=== PATIENT | male | born 1955 | race Caucasian/White ===

== ENCOUNTER 2020-05-02 10:07 | Outpatient (CLI) | payer OTHER, SELFPAY ==
--- NOTE | 2020-05-02 10:09 | ECG_ITS ---
Measurements Intervals [place] Rate: 79 P: 22 AK: 178 QRS: -25 QRSD: 97 T: 10 QT: 360 QTc: 413 Interpretive Statements SINUS RHYTHM POOR R WAVE PROGRESSION, ANTERIOR LEADS MINIMAL Q WAVES- HIGH LATERAL LEADS BORDERLINE T WAVE ABNORMALITY- INFERIOR LEADS BORDERLINE ECG Electronically Signed On 05-02-2020 10:53:41 GROUNDS PERSON by Zander Sotelo D.O.
== END 2020-05-02 10:08 | disposition home or self-care (01) ==
LOC: ANHSURGERY 10:09
PROVIDERS: PCP Family Medicine; Visit Provider Orthopaedic Surgery
DX: Z01.818 Encounter for other preprocedural examination (principal); K42.9 Umbilical hernia without obstruction or gangrene
CPT/HCPCS: 36415; 86850; 86900; 86901; 93005

== ENCOUNTER 2020-05-07 00:47 | Outpatient (CLI) | payer OTHER, SELFPAY ==
[2020-05-07 19:31] LABS: SARS-CoV-2 RNA PCR Negative
== END 2020-05-07 00:48 | disposition home or self-care (01) ==
LOC: ANHCOVIDDT 00:47
PROVIDERS: PCP Family Medicine; Visit Provider Surgery
DX: Z01.812 Encounter for preprocedural laboratory examination (principal); Z20.828 Contact with and (suspected) exposure to other viral communicable diseases
CPT/HCPCS: 87635; C9803; U0003

== ENCOUNTER 2020-05-09 00:17 | Day surgery (SDC) | payer OTHER, SELFPAY ==
[2020-04-11 14:37] VITALS: BMI 32.3
--- NOTE | 2020-04-29 15:33 | PC.NURSE ---
NEW DATE AND TIME GIVEN. NO CHANGE IN HEALTH HX
[2020-05-09] VITALS (7 sets, daily range): BP systolic 100–131; BP diastolic 59–94; PULSE 64–86; RESP 12–15; TEMP 35.9–36.4; O2SAT 96–100; BMI 34.0
--- NOTE | 2020-05-09 08:10 | WPDANESEPPF ---
Anes - Initial Pre Proc Eval Procedure: Operation Date: 05/09/20 13:30 Proposed Procedures p Laparoscopic Umbilical Hernia Repair with Mesh - Sen Franco MD Date/Time: 05/09/20 08:10 Surgeon: Sen Franco MD Pre Op Diagnosis: umbilical hernia with obstruction Patient Data Age: 64 Gender: M Height: 1.89 m Weight: 115.9 kg Allergies Allergy/AdvReac Type Severity Reaction Status Date / Time No Known Allergies Allergy Verified 04/29/20 15:27 Home Medications Medication Instructions Recorded Confirmed Type cetirizine 10 mg capsule 10 mg PO DAILY 03/16/20 04/29/20 History ECG: Date of Service: 05/02/20 Procedure(s): CA 12 lead EKG Accession Number(s): [id number] cc: ~ Measurements Intervals [place] Rate: 79 P: 22 VT: 178 QRS: -25 QRSD: 97 T: 10 QT: 360 QTc: 413 Interpretive Statements SINUS RHYTHM POOR R WAVE PROGRESSION, ANTERIOR LEADS MINIMAL Q WAVES- HIGH LATERAL LEADS BORDERLINE T WAVE ABNORMALITY- INFERIOR LEADS BORDERLINE ECG Electronically Signed On 05-02-2020 10:53:41 JAVA SDET by Zander Sotelo D.O. Dictated By: Zander Sotelo DO 05/02/20 1049 Patient hx anesthesia problems: none Family hx anesthesia problems: none PMFSH Past Medical History Medical History BMI 33.0-33.9,adult BMI 34.0-34.9,adult Skin cancer Umbilical hernia Surgical History Surgical History History of bunionectomy Ulnar nerve abnormality transpostion Family History Family History Father Hypertension Family history of lung cancer Mother Family history of malignant neoplasm of ovary Other Family history of malignant neoplasm Social History Social History Smoking packs per day: 0.5 Smoking cigarettes per day: 10.0 Years smoked: 15 Smoking pack-years: 7.50 Smoking status: Never smoker Smoking end date: 04/11/00 Additional smoking assessment comments: 25 years since he has smoked Alcohol intake: current Substance use: unknown Living arrangements: with family 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 Questions were solicited and answers provided to the satisfaction of the patient/family/POA.
[2020-05-09] MEDS: LACTATED RINGERS 1,000 ML 30 ML IV CONT (12:26)
[2020-05-09] MEDS: ACETAMINOPHEN 500 MG TABLET 1000 MG PO (12:27)
[2020-05-09] MEDS: KETOROLAC 15 MG/ML VIAL (*BKC) IV PUSH (12:27)
--- NOTE | 2020-05-09 13:05 | PM.HPGS ---
History of Present Illness History of Present Illness Consent: Risks, benefits, and alternatives of laparoscopic repair of an umbilical hernia with mesh have been discussed and questions answered. Patient agrees to proceed with procedure. Chief complaint: umbilical hernia with obstruction Narrative: Margarito Coleman is a 64 year old male who presents with an umbilical hernia at the request of Dr. Mosley. He reports first experiencing symtpoms 3-4 years ago. He states there is a bulge at his umbilicus. The bulge has doubled in size. He states it causes pain when he strains or is more active. He is having regular BM's without difficulty. Review of Systems Constitutional: Constitutional: Reports no additional constitutional complaints, Reports fatigue and Denies malaise Eyes: Eyes: Denies change in vision and Denies loss of vision ENT: Reports Normal hearing present, Denies change in voice, Denies dizziness, Denies hoarseness and Denies sore throat Cardiovascular: Cardiovascular: Denies chest pain, Denies leg edema and Denies dyspnea Respiratory: Respiratory: Denies cough, Denies dyspnea and Denies wheezing Gastrointestinal: Gastrointestinal: Denies hematochezia, Denies change in bowel habits and Denies heartburn Genitourinary: Genitourinary: Denies urinary frequency and Denies urinary incontinence Neurologic: Reports Normal hearing present, Denies confusion, Denies dizziness, Denies loss of vision, Denies memory loss and Denies seizure-like activity Psychiatric: Psychiatric: Denies confusion, Denies depression and Denies memory loss Endocrine: Endocrine: Denies cold intolerance and Reports fatigue Hematologic/Lymphatic: Hematologic/Lymphatic: Denies easy bleeding and Denies easy bruising Allergic/Immunologic: Allergic/Immunologic: Denies wheezing PMFSH Past Medical History Medical History BMI 33.0-33.9,adult BMI 34.0-34.9,adult Skin cancer Umbilical hernia Surgical History Surgical History History of bunionectomy Ulnar nerve abnormality transpostion Family History Family History Father Hypertension Family history of lung cancer Mother Family history of malignant neoplasm of ovary Other Family history of malignant neoplasm Social History Social History Smoking packs per day: 0.5 Smoking cigarettes per day: 10.0 Years smoked: 15 Smoking pack-years: 7.50 Smoking status: Never smoker Smoking end date: 04/11/00 Additional smoking assessment comments: 25 years since he has smoked Alcohol intake: current Substance use: unknown Living arrangements: with family Additional occupation/education comments: [employer] Gender identity (if verbalized by the patient): Male Spiritual care concerns: No Meds Home Medications and Allergies Home Medications Medication Instructions Recorded Confirmed Type cetirizine 10 mg capsule 10 mg PO DAILY 03/16/20 04/29/20 History Allergies Allergy/AdvReac Type Severity Reaction Status Date / Time No Known Allergies Allergy Verified 04/29/20 15:27 Exam Const: General: cooperative, healthy appearing, no acute distress, well developed and alert; No confusion Nutritional Appearance: well nourished Orientation/consciousness: patient oriented x3 and No confusion Limitations: no limitations HENMT: Head: normal to inspection, normocephalic and atraumatic Ears: hearing grossly normal bilaterally General nose exam: Normal external nose present Face and sinus: no edema Mouth: Yes Normal oral and palatal mucosa present and Yes lip normal Throat: posterior oropharynx normal Eyes: General: appearance normal, both eyes and all related structures Sclera: sclerae normal Pupils: Equal, round and reactive pupils present EOM: EOMs i
--- NOTE | 2020-05-09 14:37 | WPDHPUPDATE1 ---
History and Physical Update Update Date/Time: 05/09/20 14:37 History and Physical has been reviewed, including an updated exam of the patient. There are NO changes in the patient's condition. Risks, benefits, and alternatives have been discussed and questions answered. Patient agrees to proceed with procedure.
[2020-05-09] MEDS: ceFAZolin 3 GM/D5W 100 ML 100 ML IVPB (14:58)
[2020-05-09] MEDS: LIDO 1%/EPINEPHRINE 1:100,000 50 ML VIAL INFILTRATE (15:42)
--- NOTE | 2020-05-09 15:54 | PM.PROC ---
Procedure Note - Detailed Date of procedure: 05/09/20 Pre-op diagnosis: umbilical hernia with obstruction The above preoperative diagnosis will not go way and I disagree with it. See below: Umbilical hernia without signs of obstruction or incarceration Post-op diagnosis: same (Umbilical hernia without signs of obstruction or incarceration) Procedure performed: Laparoscopic umbilical hernia repair with mesh Description of procedure: DESCRIPTION OF PROCEDURE: The patient was placed in the supine position on the operative table and after induction of adequate general endotracheal anesthesia by Ahsan Anesthesia, the entire abdomen was prepped and draped in usual sterile fashion and the head placed slightly up. An Ioban drape was used to prevent contact of the mesh with the skin during this clean case. Following this, local anesthetic was placed and a spot selected about two fingerbreadths below the costal margin on the left and a small incision made after instilling local anesthetic using 1 % xylocaine with epinephrine. Following this, a Veress needle technique using the water drop test was completed. Using 2 towel clips on the skin, I carefully elevated the skin and then passed the Veress needle into the abdomen and we could see that the saline dropped through the Veress needle easily. CO2 gas was connected and the abdomen was insufflated to 14 mm Hg pressure after starting out at around 9. Following this, 0 degree 5 mm laparoscope was placed inside a 5 mm trocar, which was carefully twisted into the abdomen without difficulty, seeing a open pneumoperitoneum as we entered. Thus, the trocar was removed, the sleeve confirmed to be nicely within the abdomen, and we carefully inspected the abdomen. Careful inspection of the abdomen revealed no inguinal hernias. A small defect in the umbilicus that was easy to see and abour 2.5 cm in diameter, but after placing a 12 mm port in the left lower quadrant under direct vision with the laparoscope, we could see up into a 25 mm defect that had been measured then with an instrument with a known cm marker. There was no incarceration of any omentum or any other adhesions to the underside of the umbilicus. Next I infiltrated some of the local anesthetic right at the site where I was planning to pass a granny needle through an 11 blade knife slit and also circumferentially in the fascia surrounding the umbilicus where the tacks would go. We had a little bleeding from this, and lost about 5 mL of blood. Following this, we carefully planned by measuring the defect. Our mesh, a circular 11 cm piece of Ventralight piece of mesh was chosen, so that we would have 4.5 cm of overlap in all directions over the circular umbilical defect. Following this, the ventralight balloon hernia system mesh was rolled and this was inserted through the 12 mm port after rolling it to protect the absorbable covering on the downside of the mesh. A black silk suture was placed through the blue system loop that is used to extract the tubing for the balloon positioning system such that I could grab this and pull it up through the umbilical area with the suture Passer. I used the suture passer after making a small opening with an 11 blade knife after placing local anesthetic directly in the center of the umbilicus as noted above. The suture passer was used to grasp this centering silk stitch on the piece of mesh, and this was pulled up centering it. Then I inflated the balloon system which brought the mesh up against the anterior abdominal wall centering it nicely with the center of the 11 centimeter piece of mesh over the center of the umbilicus. Two rows of tacks using the Ethicon absorbable Tacker were completed circumferentially at the edge and then about 2 centimeters back from the edge. This seemed to give good security to the mesh completely covering the umbilical defect. Once this was completed, we carefully removed the tacker, snipped t
== END 2020-05-09 17:16 | disposition home or self-care (01) ==
PROVIDERS: PCP Family Medicine; Visit Provider Surgery
PROC: (CPT 49652; principal; 2020-05-09 13:30)
DX: K42.0 Umbilical hernia with obstruction, without gangrene (principal); E66.9 Obesity, unspecified; Z68.34 Body mass index [BMI] 34.0-34.9, adult; Z87.891 Personal history of nicotine dependence
CPT/HCPCS: 49652; 36415; 86850; 86900; 86901; 93005; A9270; C1781; C9803; J0690; J1100; J1885; J2405; J2704; J3010; J7120; U0003

== ENCOUNTER 2023-04-22 06:57 | Day surgery (SDC) | payer OTHER, SELFPAY ==
[2023-04-10 13:31] VITALS: BMI 32.2
[2023-04-22 08:29] VITALS: BP 124/81; PULSE 87; RESP 16; TEMP 36.6; O2SAT 97
--- NOTE | 2023-04-22 08:32 | PM.HPGS ---
History of Present Illness History of Present Illness Consent: Risks, benefits, and alternatives have been discussed and questions answered. Patient agrees to proceed with procedure. Chief complaint: History of Colon Polyps Narrative: Margarito Coleman is a 67 year old male Presents for screening colonoscopy. Patient reports he was found to have a benign colon polyp 8 years ago. Follow-up colonoscopy 5 years ago was a unremarkable. Patient is today for surveillance colonoscopy. He reports a tendency towards constipation. Only has small amount of bright red blood per rectum attributed to hemorrhoids. Has remained stable. Family history noncontributory. Review of Systems Review of Systems: Review of systems noncontributory. [facility] Past Medical History Medical History (Updated 04/22/23 @ 08:34 by Michael Jean MD) BMI 33.0-33.9,adult BMI 34.0-34.9,adult BMI 35.0-35.9,adult BMI greater than 30 Bunion, right Dermatitis Flat foot [pes planus] (acquired), left foot Gout Hallux valgus (acquired), right foot Polyp of colon Skin cancer Umbilical hernia (Unknown) Surgical History Surgical History History of bunionectomy Ulnar nerve abnormality transpostion Family History Family History Father Hypertension Family history of lung cancer Lung cancer Heart disease Mother Family history of malignant neoplasm of ovary Ovarian cancer Daughter Lung cancer Sibling No problems noted. Other Family history of malignant neoplasm Social History Social History Smoking packs per day: 0.5 Smoking cigarettes per day: 10.0 Years smoked: 15 Smoking pack-years: 7.50 Smoking status: Former smoker Tobacco type: cigarettes Second hand tobacco smoke exposure: No Smoking end date: 04/11/00 Additional smoking assessment comments: 25 years since he has smoked Alcohol intake: never Substance use: never Substance use type: does not use Last use: 25 years ago Lack of Transportation: No Lack of Food: Never True Current Housing: I Have Housing Concerned About Future Housing: No Difficulty Paying Gas/Electric Bills: No Difficulty Paying for Meds: No Currently Unemployed: No Education: Bachelor's Degree Difficulty w/ Childcare or Family Care: No Living arrangements: with family Occupation/Education: occupation Additional occupation/education comments: [employer] Gender identity (if verbalized by the patient): Male Spiritual care concerns: No Meds Home Medications and Allergies Home Medications Medication Instructions Recorded Confirmed Type sodium,potassium,mag sulfates 17.5 See Rx Instructions PO .COMPLEX 04/03/23 Rx gram-3.13 gram-1.6 gram oral soln #354 mL (Suprep Bowel Prep Kit) Allergies Allergy/AdvReac Type Severity Reaction Status Date / Time No Known Allergies Allergy Verified 04/22/23 08:18 Vital Signs Vital Signs - 24 hr 04/22/23 08:29 Temperature 97.8 F Pulse Rate 87 Respiratory Rate 16 Blood Pressure 124/81 Pulse Oximetry 97 Oxygen Delivery Room Air Exam Narrative: Physical exam reveals patient to be alert. Vital signs stable. HEENT exam is unremarkable. Patient is anicteric. Lungs are clear to auscultation and percussion. Heart is without murmur or extra sounds. Abdomen bowel sounds are present soft nontender with no organomegaly. Digital external rectal exam is normal. Assessment and Plan Assessment and plan (1) History of colon polyps: Code(s): Z86.010 - Personal history of colonic polyps Status: Acute Assessment and Plan: Patient has a history of colon polyps. Plan for surveillance colonoscopy now. Consider this at 5-7 years in the future.
[2023-04-22] MEDS: LACTATED RINGERS 1,000 ML 150 ML IV CONT (08:33)
--- NOTE | 2023-04-22 08:36 | WPDANESEPPF ---
Anes - Initial Pre Proc Eval Procedure: Operation Date: 04/22/23 09:30 Proposed Procedures p Colonoscopy - Michael Jean MD Date/Time: 04/22/23 08:36 Surgeon: Michael Jean MD Pre Op Diagnosis: History of Colon Polyps Patient Data Age: 67 Gender: M Height: 1.88 m Weight: 120.6 kg Last Vital Signs Temp 36.6 C 04/22/23 08:29 Pulse 87 04/22/23 08:29 Resp 16 04/22/23 08:29 BP 124/81 04/22/23 08:29 Pulse Ox 97 04/22/23 08:29 O2 Del Method Room Air 04/22/23 08:29 Allergies Allergy/AdvReac Type Severity Reaction Status Date / Time No Known Allergies Allergy Verified 04/22/23 08:18 Home Medications Medication Instructions Recorded Confirmed Type sodium,potassium,mag sulfates 17.5 See Rx Instructions PO .COMPLEX 04/03/23 Rx gram-3.13 gram-1.6 gram oral soln #354 mL (Suprep Bowel Prep Kit) Patient hx anesthesia problems: none Family hx anesthesia problems: none Results Review: All pre-operative results and documents have been reviewed as part of the pre-operative evaluation. [facility] Past Medical History Medical History BMI 33.0-33.9,adult BMI 34.0-34.9,adult BMI 35.0-35.9,adult BMI greater than 30 Bunion, right Dermatitis Flat foot [pes planus] (acquired), left foot Gout Hallux valgus (acquired), right foot Polyp of colon Skin cancer Umbilical hernia (Unknown) Surgical History Surgical History (Updated 04/22/23 @ 08:36 by Eris Adler MD) H/O umbilical hernia repair History of bunionectomy Ulnar nerve abnormality transpostion Family History Family History Father Hypertension Family history of lung cancer Lung cancer Heart disease Mother Family history of malignant neoplasm of ovary Ovarian cancer Daughter Lung cancer Sibling No problems noted. Other Family history of malignant neoplasm Social History Social History Smoking packs per day: 0.5 Smoking cigarettes per day: 10.0 Years smoked: 15 Smoking pack-years: 7.50 Smoking status: Former smoker Tobacco type: cigarettes Second hand tobacco smoke exposure: No Smoking end date: 04/11/00 Additional smoking assessment comments: 25 years since he has smoked Alcohol intake: never Substance use: never Substance use type: does not use Last use: 25 years ago Lack of Transportation: No Lack of Food: Never True Current Housing: I Have Housing Concerned About Future Housing: No Difficulty Paying Gas/Electric Bills: No Difficulty Paying for Meds: No Currently Unemployed: No Education: Bachelor's Degree Difficulty w/ Childcare or Family Care: No Living arrangements: with family Occupation/Education: occupation Additional occupation/education comments: [employer] Gender identity (if verbalized by the patient): Male Spiritual care concerns: No Anes - Eval Final PreProcedure Day of Procedure 04/22/23 08:36 Patient weight: obese Heart: regular rate and rhythm Lungs: clear to auscultation Airway: Mallampati scale class II Neurological: alert and oriented Last oral intake: >/= 8 hours ASA classification: III Emergent: no Anesthetic plan: proceed Anesthesia type and monitoring: general GIVS and standard monitoring Results Review: All pre-operative results and documents have been reviewed as part of the pre-operative evaluation. Informed Consent: The patient's anesthetic plan and its attendant risks and benefits were discussed with the patient/family/POA. Questions were solicited and answers provided to the satisfaction of the patient/family/POA.
[2023-04-22 09:17] VITALS: BP 115/79; PULSE 82; RESP 18; O2SAT 97
[2023-04-22 09:27] VITALS: BP 111/74; PULSE 76; RESP 16; O2SAT 95
[2023-04-22 09:37] VITALS: BP 110/68; PULSE 72; RESP 16; O2SAT 97
--- NOTE | 2023-04-22 09:42 | WPDANESPN ---
Anes - Prog Note Post-Op Date/Time: 04/22/23 09:42 Cardiovascular status: normal Respiratory status: normal Airway patency: baseline Mental status: baseline Post-Op hydration status: normal Vital Signs: Last Vital Signs Temp 36.6 C 04/22/23 08:29 Pulse 76 04/22/23 09:27 Resp 16 04/22/23 09:27 BP 111/74 04/22/23 09:27 Pulse Ox 95 04/22/23 09:27 O2 Del Method Room Air 04/22/23 09:27 Pain Score (VAS): 0/10 I/O: Intake & Output 04/21/23 04/22/23 04/22/23 23:59 07:59 15:59 Intake Total 300 Balance 300 Patient Feedback: Patient satisfied with anesthetic care.
--- NOTE | 2023-04-22 09:54 | WPDANESPN ---
Anes - Prog Note Post-Op Date/Time: 04/22/23 09:54 Cardiovascular status: normal Respiratory status: normal Airway patency: baseline Mental status: baseline Post-Op hydration status: normal Vital Signs: Last Vital Signs Temp 36.6 C 04/22/23 08:29 Pulse 72 04/22/23 09:37 Resp 16 04/22/23 09:37 BP 110/68 04/22/23 09:37 Pulse Ox 97 04/22/23 09:37 O2 Del Method Room Air 04/22/23 09:37 Pain Score (VAS): 0/10 I/O: Intake & Output 04/21/23 04/22/23 04/22/23 23:59 07:59 15:59 Intake Total 300 Balance 300 Patient Feedback: Patient satisfied with anesthetic care.
--- NOTE | 2023-04-22 10:16 | SUR.PHASEII ---
0925 Attempted to call Pt's ride, left message. Unable to get a hold of ride at this time. Pt resting comfortably. Call light within reach.
== END 2023-04-22 11:01 | disposition home or self-care (01) ==
PROVIDERS: PCP Family Medicine; Visit Provider Internal Medicine Gastroenterology
PROC: 0DJD8ZZ Inspection of Lower Intestinal Tract, Via Natural or Artificial Opening Endoscopic (ICD-10-PCS; CPT 45378; principal; 2023-04-22 09:30)
DX: Z86.010 Personal history of colon polyps (principal); K57.30 Diverticulosis of large intestine without perforation or abscess without bleeding; K64.8 Other hemorrhoids
CPT/HCPCS: 45378

== ENCOUNTER 2024-10-20 13:24 | Outpatient (CLI) | payer MEDICARE, SELFPAY ==
--- NOTE | ~2024-10-20 | XR_ITS ---
Left Knee Technique: AP and lateral views were obtained. Clinical History: Pain Findings: No fracture or dislocation is seen. Osseous alignment is anatomic. Joint spaces are preserv ed without degenerative or erosive change. Soft tissues are unremarkable. No joint effusion is seen. Impression: Unremarkable left knee radiographs. Reviewed, dictated and finalized at location . Impression: Unremarkable left knee radiographs.
== END 2024-10-20 13:25 | disposition home or self-care (01) ==
LOC: MICIMG 13:27
PROVIDERS: PCP Family Medicine; Visit Provider Nurse Practitioner Adult Health
DX: M25.562 Pain in left knee (principal)
CPT/HCPCS: 73560

== ENCOUNTER 2025-03-17 09:50 | Outpatient (CLI) | payer MEDICARE, SELFPAY ==
--- OUTSIDE RECORDS SUMMARY | 2008-12-22 05:30 | XMS_ITS | Continuity of Care Document ---
Author Organization [facility] Address [address] [place] [address] [address] [place] [address] Phone Care Team Providers Care Vice President Of Advertising Name Role Phone Edward Rosario Unavailable Unavailable Procedures Procedure Date Remove Foreign Body From Eye Advance Directives Directive Yes / No Effective Date File Name No Information Encounters Encounter Description Practice Location Reason(s) For Visit Diagnoses Date Provider Providers Copied on [facility]counter [facility] [address] [place], [place], [id number], [place] tel:[phone] [facility] No Information [address]. Formerly [facility] [address], [address], [place]. tel:[phone] Referring Provider: Edward lozano, [facility]ly [facility] [address], [facility]. tel:[phone] Family History Family Member Type Diagnosis Age At Onset No Information Payers Payer name Insurance type Covered constitution party ID Authoriza tion(s) No Information Social History Type Description Quantity Date Captured Comments Sex Male Smoking Status No Information Chief Complaint And Reason For Visit No Information Reason For Referral Reason For Referral No Information History Of Present Illness Encounter Date Complaint History Of Prese nt Illness No Information Functional Status Date Functional Assessmen t No Information Instructions Date Instruction Additional Infor mation No Information Assessments Type Assessment Date No Information Patient Care Teams Name Effective Dates (start - stop) Status Members No Information
--- NOTE | ~2025-03-17 | XR_ITS ---
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 Findings: Postsurgical changes with fixation of the first metatarsal and the proximal phalanx first digit, no fracture identified. Severe degenerative changes of the first metatarsal phalangeal joint. Soft tissues unremarkable. Impression: No acute fracture or malalignment. Reviewed, dictated and finalized at location P. MACHINE OPERATOR Impression: No acute fracture or malalignment.
[2025-03-17 10:35] LABS: Hematocrit 45.9 % (42.0-52.0); Hemoglobin 14.8 g/dL (14.0-18.0); Immature Granulocyte Percent A 1.0 % (0-0.5); Lymphocytes Absolute Auto 1.68 K/mm3 (0.9-3.2); Mean Corpuscular HGB Conc 32.2 g/dl (32-36); Mean Corpuscular Hemoglobin 27.8 pg (26-34); Mean Corpuscular Volume 86.3 fl (80-100); Nucleated Red Blood Cells Absolute Auto 0.000 K/mm3 (0.0-0.012); Nucleated Red Blood Cells Perc 0.0 % (0.0-0.2); Platelet Count Result 248 k/mm3 (150-375); Red Blood Count 5.32 M/mm3 (4.6-6.20); White Blood Count 5.8 K/mm3 (4.5-10.0)
[2025-03-17 11:03] LABS: Uric Acid 8.3 mg/dL (3.5-8.5)
--- OUTSIDE RECORDS SUMMARY | 2025-03-18 09:41 | XMS_ITS | Clinical Summary ---
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 Gender Identity Not on file Sexual Orientation Not on file Plan of Treatment Health Maintenance Due Date Last Done Comments DTAP/TDAP/TD VACCINES (1 - Tdap) 1976 COLORECTAL SCREENING 2002 Colorectal Cancer Screening 2002 FIT-DNA Q 3 years 2002 FIT/FOBT Q 1 year 2002 Flex Sig/CT Colonography Q 5 years 2002 PNEUMOCOCCAL VACCINE 50+ YEA RS (1 of 1 - PCV) 09/18/2007 ZOSTER VACCINE (1 of 2) 09/18/2007 INFLUENZA VACCINE (#1) 2024 COVID-19 Vaccine (3 - season) 01/11/202502/2021, 06/02/2020 RSV VACCINE (60+ or ) (1 - 1-dose 75+ series) 2032 Insurance [facility] OPTIONS PPO [id number] Member Subscriber Plan / Payer (Ef fective 2020-Present) Name:Margarito Coleman Relation to Subscriber:Self Name:Margarito Coleman Payer ID:[id number] (NAIC) Type:PPO Address: [facility] [id number] [place] [id number]
== END 2025-03-17 09:51 | disposition home or self-care (01) ==
PROVIDERS: PCP Family Medicine; Visit Provider Nurse Practitioner Adult Health
DX: M19.072 Primary osteoarthritis, left ankle and foot (principal); Z13.220 Encounter for screening for lipoid disorders; Z98.890 Other specified postprocedural states
CPT/HCPCS: 36415; 73630; 84550; 85025